=== PATIENT | female | born 1970 | race Caucasian/White ===

== ENCOUNTER 2018-01-30 19:32 | Emergency (ER) | payer OTHER ==
[2018-01-30] MEDS ORDERED: HYDROmorphone 0.5 MG/0.5 ML SYRINGE IM ONE (21:28)
--- NOTE | 2018-01-30 22:49 | EDM.PDOC ---
ED HPI GENERAL MEDICAL PROBLEM - General Chief Complaint: Lower Extremity Injury/Pain Stated Complaint: RIGHT SIDE HIP PAIN Time Seen by Provider: 01/30/18 20:59 Source of Information: Reports: Patient History Limitations: Reports: No Limitations - History of Present Illness INITIAL COMMENTS - FREE TEXT/NARRATIVE: Patient is a 47-year-old female who presents to the ED complaining of right hip pain. Patient had a total right hip replacement 7 years ago. States today while at work she stepped back and with turning her leg out she experienced sudden pain to the right hip that radiated into her right groin. Since then she's been unable to weight-bear secondary to pain. Pain significantly improves with leg bent over the side of the bed. There was no popping sound when this occurred. She denies any motor/sensory deficits distally. Denies recent fall. Pain is localized with no radiation down her leg. 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 [No Known Home Meds] 01/30/18 [History] Past Medical History - Past Surgical History Musculoskeletal Surgical History: Reports: Hip Replacement Social & Family History - Tobacco Use Smoking Status *Q: Never Smoker - Caffeine Use Caffeine Use: Reports: Coffee, Tea - Recreational Drug Use Recreational Drug Use: No Review of Systems - Review of Systems Review Of Systems: ROS reveals no pertinent complaints other than HPI. ED EXAM, GENERAL - Physical Exam Exam: See Below Exam Limited By: No Limitations General Appearance: Alert, WD/WN, Mild Distress Ears: Hearing Grossly Normal Nose: Normal Inspection Throat/Mouth: Normal Voice, No Airway Compromise Neck: Normal Inspection, Supple Respiratory/Chest: No Respiratory Distress, Lungs Clear, Normal Breath Sounds, No Accessory Muscle Use Cardiovascular: Normal Peripheral Pulses, Regular Rate, Rhythm Peripheral Pulses: 4+: Posterior Tibial (R) Back Exam: Normal Inspection Extremities: Normal Inspection, No Pedal Edema, Normal Capillary Refill, Limited Range of Motion, Other (Large surgical incision over the right hip from previous total hip replacement. Pain with palpation along the right hip. Localized with no radiation. Patient is able to flex and extend at the hip with minimal discomfort. She is able to weight-bear but notes increasing pain with doing so. No pain noted with palpation of the femur, knee, lower leg, ankle, or foot. No pain with palpation posteriorly along the hamstring and also anteriorly along the quadriceps. 3 changes noted.) Neurological: Alert, Oriented, CN II-XII Intact, Normal Cognition, No Motor/ Sensory Deficits. No: Normal Gait Psychiatric: Normal Affect, Normal Mood Skin Exam: Warm, Dry, Intact, Normal Color, No Rash Course - Vital Signs Last Recorded V/S: Last Vital Signs Temp 98.7 F 01/30/18 19:54 Pulse 80 01/30/18 19:54 Resp 20 01/30/18 19:54 BP 121/71 01/30/18 19:54 Pulse Ox 98 01/30/18 19:54 - Orders/Labs/Meds Orders: Active Orders 24 hr Category Date Time Status Hip Min 2V or 3V Rt [CR] Stat Exams 01/30/18 21:28 Taken Meds: Medications Discontinued Medications Generic Name Dose Route Start Last Admin Trade Name Vicki PRN Reason Stop Dose Admin Hydromorphone HCl 0.5 mg 01/30/18 21:28 01/30/18 21:44 Dilaudid IM 01/30/18 21:29 0.5 mg ONETIME ONE Administration - Re-Assessments/Exams Free Text/Narrative Re-Assessment/Exam: X-ray of the right hip obtained. Reviewed with Dr. Mcqueen with no acute bony abnormalities noted. Patient is unable to weight bear. She refuses crutches. Will a walker home with the patient. She will followup with Orthopedic Surgeon this week or the following for reevaluation. I have discharged the patient home with prescription for norco. Return precautions discussed with the patient. Discharge instructions as documented. Departure - Departure Time of Disposition: 22:54 Disposition: Home, Self-Care 01 Condition: Good Clinical Impression: Acute right hip pain - Discharge Information Instructions: Hip Pain, Pain Medicine Instructions, [id number] Referrals: Dawson Westbrook MD [Physician] - Forms: ED Department Discharge, ED Return to Work/School Form Additional Instructions: As discussed x-ray of the right hip did not reveal any acute bony abnormalities. Will have you utilize walker to ambulate secondary to increasing pain with weightbearing. Apply ice to affected area 3 times a day, 30 minutes in duration, do not apply directly on the skin. Utilize Tylenol and ibuprofen in alternating fashion for pain. For severe pain take [place] one tab every 6 hours as needed[address] Do not drive this evening since receiving a sedative medication while in the ED. Do not drive while taking the [place]. Do not take [place] and Tylenol together. Call and make an appointment to be evaluated by Dr. Westbrook this week or the following. Refrain from any activities that cause worsening pain. Return to the ED if you develop any new or worsening symptoms. - My Orders Last 24 Hours: My Active Orders 01/30/18 21:28 Hip Min 2V or 3V Rt [CR] Stat - Assessment/Plan Last 24 Hours: My Active Orders 01/30/18 21:28 Hip Min 2V or 3V Rt [CR] Stat
--- NOTE | 2018-01-31 07:43 | CR ---
Right hip: AP and frog-leg lateral views of the right hip were obtained. Comparison: No previous study. Right hip prosthesis is seen. Components are aligned. Underlying bony structures are intact. Impression: 1. Right hip prosthesis. Nothing acute is seen. Diagnostic code #2
== END 2018-01-30 23:10 | disposition home or self-care (01) ==
LOC: JD.ED 19:32
DX: M25.551 Pain in right hip (principal); Z88.0 Allergy status to penicillin; Z96.641 Presence of right artificial hip joint
CPT/HCPCS: 73502; 96372; 99283; J1170

== ENCOUNTER 2019-07-07 01:51 | Emergency (ER) | payer BC ==
[2019-07-07] MEDS ORDERED: Sodium Chloride 0.9% 1,000 ML IV STA (02:17)
[2019-07-07] MEDS ORDERED: Ondansetron 4 MG/2 ML SDV IVPUSH ONE (02:17)
[2019-07-07] MEDS ORDERED: Sodium Chloride 0.9% 10 ML Syringe FLUSH PRN (02:17)
[2019-07-07] MEDS ORDERED: Famotidine 20 MG/2 ML SDV IVPUSH ONE (02:18)
[2019-07-07] MEDS ORDERED: HYDROmorphone 1 MG/ML Syringe IVPUSH ONE (02:18)
--- NOTE | 2019-07-07 02:26 | EDM.PDOC ---
ED HPI GENERAL MEDICAL PROBLEM - General Chief Complaint: Abdominal Pain Stated Complaint: ABDOMINAL PAIN Time Seen by Provider: 07/07/19 02:13 Source of Information: Reports: Patient, Family History Limitations: Reports: No Limitations - History of Present Illness INITIAL COMMENTS - FREE TEXT/NARRATIVE: The patient presents with left upper abdominal pain. This woke her out of her sleep tonight. The pain goes to her mid abdomen. She says she had pain on and off for about 4 days. She has nausea and she had some diarrhea. Some people at work had a GI bug. She has had trouble with her gallbladder before. She had an US and HIDA scan in November. Her US shows sludge in the gallbladder. Her HIDA scan showed a normal ejection fraction. She has no fever or chills. She has no chest pain or shortness of breath. She has no dysuria. She still has her gallbladder and appendix. Onset: Gradual Duration: Day(s): Location: Reports: Abdomen Quality: Reports: Sharp Severity: Moderate Improves with: Reports: None Worsens with: Reports: None Associated Symptoms: Reports: Nausea/Vomiting. Denies: Chest Pain, Cough, Fever /Chills, Headaches, Shortness of Breath Right Abdominal Pain Score (Numeric/FACES): 5 - Related Data Allergies Allergy/AdvReac Type Severity Reaction Status Date / Time Penicillins Allergy Other Verified 07/07/19 02:02 Home Meds: Home Meds Estrogens, Conjugated [Premarin] 07/07/19 [History] Hydrocodone/Acetaminophen [Hydrocodon-Acetaminophen 5-325] 1 - 2 each PO Q6HR PRN #20 tablet 07/07/19 [Rx] Ondansetron [Zofran ODT] 4 mg PO Q6H PRN #20 tab.dis 07/07/19 [Rx] Progesterone, Micronized [Progesterone] 07/07/19 [History] Past Medical History HEENT History: Reports: Impaired Vision - Past Surgical History Musculoskeletal Surgical History: Reports: Hip Replacement Social & Family History - Family History Family Medical History: Noncontributory - Tobacco Use Smoking Status *Q: Never Smoker - Caffeine Use Caffeine Use: Reports: Coffee, Soda - Recreational Drug Use Recreational Drug Use: No ED ROS GENERAL - Review of Systems Review Of Systems: See Below Constitutional: Reports: No Symptoms HEENT: Reports: No Symptoms Respiratory: Reports: No Symptoms Cardiovascular: Reports: No Symptoms Endocrine: Reports: No Symptoms GI/Abdominal: Reports: Abdominal Pain, Diarrhea, Nausea. Denies: Vomiting : Reports: No Symptoms ED EXAM, GI/ABD - Physical Exam Exam: See Below Exam Limited By: No Limitations General Appearance: Alert, No Apparent Distress Ears: Normal External Exam Nose: Normal Inspection Head: Atraumatic, Normocephalic Neck: Normal Inspection Respiratory/Chest: No Respiratory Distress, Lungs Clear, Normal Breath Sounds Cardiovascular: Regular Rate, Rhythm, No Edema, No Murmur GI/Abdominal Exam: Soft, No Organomegaly, No Mass, Tender (Moderate tenderness to the upper abdomen) Back Exam: Normal Inspection Extremities: Normal Inspection Course - Vital Signs Last Recorded V/S: Last Vital Signs Temp 98.3 F 07/07/19 01:59 Pulse 88 07/07/19 01:59 Resp 19 07/07/19 01:59 BP 107/75 07/07/19 01:59 Pulse Ox 99 07/07/19 01:59 - Orders/Labs/Meds Orders: Active Orders 24 hr Category Date Time Status Peripheral IV Care [RC] . DIRECTED Care 07/07/19 02:17 Active Abdomen Pelvis w Cont [CT] Stat Exams 07/07/19 02:17 Taken Sodium Chloride 0.9% [Saline Flush] Med 07/07/19 02:17 Active 10 ml FLUSH ASDIRECTED PRN ED Antiemetic Medication Reflex [OM.PC] Stat Oth 07/07/19 02:17 Ordered Peripheral IV Insertion Adult [OM.PC] Stat Oth 07/07/19 02:17 Ordered Medication Orders Sodium Chloride (Saline Flush) 10 ml FLUSH ASDIRECTED PRN PRN Reason: Keep Vein Open Last Admin: 07/07/19 02:39 Dose: 10 ml Labs: Laboratory Tests 07/07/19 07/07/19 07/07/19 Range/Units 02:25 02:25 03:41 WBC 11.07 H (3.98-10.04) K/mm3 RBC 4.48 (3.98-5.22) M/mm3 Hgb 13.9 (11.2-15.7) gm/dl Hct 40.0 (34.1-44.9) % MCV 89.3 (79.4-94.8) fl MCH 31.0 (25.6-32.2) pg MCHC 34.8 (32.2-35.5) g/dl RDW Std Deviation 42.2 (36.4-46.3) fL Plt Count 267 (182-369) K/mm3 MPV 10.2 (9.4-12.3) fl Neut % (Auto) 64.3 (34.0-71.1) % Lymph % (Auto) 25.0 (19.3-51.7) % [place] % (Auto) 6.7 (4.7-12.5) % Eos % (Auto) 3.3 (0.7-5.8) Baso % (Auto) 0.3 (0.1-1.2) % Neut # (Auto) 7.13 H (1.56-6.13) K/mm3 Lymph # (Auto) 2.77 (1.18-3.74) K/mm3 [place] # (Auto) 0.74 H (0.24-0.36) K/mm3 Eos # (Auto) 0.36 (0.04-0.36) K/mm3 Baso # (Auto) 0.03 (0.01-0.08) K/mm3 Manual Slide Review Abnormal smear Sodium 137 (136-145) mEq/L Potassium 3.6 (3.5-5.1) mEq/L Chloride 105 (98-107) mEq/L Carbon Dioxide 23 (21-32) mEq/L Anion Gap 12.6 (5-15) BUN 14 (7-18) mg/dL Creatinine 0.9 (0.55-1.02) mg/dL Est Cr Clr Drug Dosing 71.91 mL/min Estimated GFR (MDRD) > 60 (>60) mL/min BUN/Creatinine Ratio 15.6 (14-18) Glucose 99 (74-106) mg/dL Calcium 8.8 (8.5-10.1) mg/dL Total Bilirubin 0.5 (0.2-1.0) mg/dL AST 144 H (15-37) U/L ALT 118 H (14-59) U/L Alkaline Phosphatase 60 (46-116) U/L Total Protein 7.0 (6.4-8.2) g/dl Albumin 3.7 (3.4-5.0) g/dl Globulin 3.3 gm/dL Albumin/Globulin Ratio 1.1 (1-2) Lipase 120 (73-393) U/L Urine Color Yellow (Yellow) Urine Appearance Clear (Clear) Urine pH 6.5 (5.0-8.0) Ur Specific [place] 1.020 (1.005-1.030) Urine Protein Negative (Negative) Urine Glucose (UA) Negative (Negative) Urine Ketones Negative (Negative) Urine Occult Blood Negative (Negative) Urine Nitrite Negative (Negative) Urine Bilirubin Negative (Negative) Urine Urobilinogen 0.2 (0.2-1.0) Ur Leukocyte Esterase Negative (Negative) Urine RBC 0-5 (0-5) /hpf Urine WBC 0-5 (0-5) /hpf Ur Squamous Epith Cells 5-10 H (0-5) /hpf Urine Bacteria Few (FEW) /hpf Urine Mucus Rare (FEW) /hpf Meds: Medications Generic Name Dose Route Start Last Admin Trade Name Freq PRN Reason Stop Dose Admin Sodium Chloride 10 ml 07/07/19 02:17 07/07/19 02:39 Saline Flush FLUSH 10 ml ASDIRECTED PRN Administration Keep Vein Open Discontinued Medications Generic Name Dose Route Start Last Admin Trade Name Freq PRN Reason Stop Dose Admin Diatrizoate Meglum/Diatrizoate Sod 90 ml 07/07/19 03:22 Gastrografin 37% PO 07/07/19 03:23 ONETIME ONE Famotidine 20 mg 07/07/19 02:18 07/07/19 02:35 Pepcid IVPUSH 07/07/19 02:19 20 mg ONETIME ONE Administration Hydromorphone HCl 1 mg 07/07/19 02:18 07/07/19 02:35 Dilaudid IVPUSH 07/07/19 02:19 1 mg ONETIME ONE Administration Sodium Chloride 1,000 mls @ 1,000 mls/hr 07/07/19 02:17 07/07/19 02:40 Normal Saline IV 07/07/19 03:16 1,000 mls/hr .BOLUS STA Administration Iopamidol 100 ml 07/07/19 03:22 Isovue-300 (61%) IVPUSH 07/07/19 03:23 ONETIME ONE Ondansetron HCl 4 mg 07/07/19 02:17 12/06/19 02:36 Zofran IVPUSH 07/07/19 02:18 4 mg ONETIME ONE Administration - Re-Assessments/Exams Free Text/Narrative Re-Assessment/Exam: 07/07/19 02:25 I ordered an IV NS 1L bolus, zofran 4mg IV, dilaudid 1mg IV, pepcid 20mg IV, labs, UA and a CT of her abdomen and pelvis. 07/07/19 04:49 Her WBC was slightly elevated at 11.07. Her AST was elevated at 144. Her ALT is elevated at 118. Her lipase is negative. Her UA shows no UTI. Her CT shows cholelithiasis with gallbladder distention and possible sludge versus stones in the basilar Doppler. Gallbladder US is suggested. Sigmoid diverticulosis but no diverticulitis. She feels much better. I will refer her to Dr Childers our surgeon to possibly have her gallbladder removed. 07/07/19 04:53 Departure - Departure Time of Disposition: 04:55 Disposition: Home, Self-Care 01 Condition: Good Clinical Impression: Biliary colic Abdominal pain Qualifiers: Abdominal location: upper abdomen, unspecified Qualified Code(s): R10.10 - Upper abdominal pain, unspecified Cholelithiasis Qualifiers: Cholelithiasis location: gallbladder Cholecystitis presence: without cholecystitis Biliary obstruction: without biliary obstruction Qualified Code(s) : K80.20 - Calculus of gallbladder without cholecystitis without obstruction - Discharge Information *PRESCRIPTION DRUG MONITORING PROGRAM REVIEWED*: No *COPY OF PRESCRIPTION DRUG MONITORING REPORT IN PATIENT HECTOR: No Prescriptions: Hydrocodone/Acetaminophen [Hydrocodon-Acetaminophen 5-325] 1 - 2 each PO Q6HR PRN #20 tablet PRN Reason: Pain Ondansetron [Zofran ODT] 4 mg PO Q6H PRN #20 tab.dis PRN Reason: Nausea\vomiting Referrals: Tami Villar MD [Primary Care Provider] - Matthew Childers MD [Physician] - Forms: ED Department Discharge, ED Return to Work/School Form Additional Instructions: Drink plenty of fluids. Try to avoid any fried or fatty foods. Take the hydrocodone as needed for pain and the zofran as needed for nausea and vomiting. Follow up with Dr Childers our general surgeon. Please return if you are worse. - My Orders Last 24 Hours: My Active Orders 07/07/19 02:17 Peripheral IV Care [RC] . DIRECTED Abdomen Pelvis w Cont [CT] Stat Sodium Chloride 0.9% [Saline Flush] 10 ml FLUSH ASDIRECTED PRN ED Antiemetic Medication Reflex [OM.PC] Stat Peripheral IV Insertion Adult [OM.PC] Stat - Assessment/Plan Last 24 Hours: My Active Orders 07/07/19 02:17 Peripheral IV Care [RC] . DIRECTED Abdomen Pelvis w Cont [CT] Stat Sodium Chloride 0.9% [Saline Flush] 10 ml FLUSH ASDIRECTED PRN ED Antiemetic Medication Reflex [OM.PC] Stat Peripheral IV Insertion Adult [OM.PC] Stat
[2019-07-07] MEDS ORDERED: Diatrizoate Meglumine/Diatrizoate Sodium 37% 120 ML Bottle PO ONE (03:22)
[2019-07-07] MEDS ORDERED: Iopamidol 612 MG/ML 100 ML Bottle IVPUSH ONE (03:22)
--- NOTE | 2019-07-10 06:36 | CT ---
CT abdomen and pelvis Technique: Multiple axial sections were obtained from above the dome of the diaphragm inferiorly through the pubic symphysis. Intravenous and oral contrast was given. Delayed images were also obtained through the bladder. Comparison: No prior CT exam. Previous right upper quadrant abdominal ultrasound 12/22/18. Findings: Visualized lung bases show nothing acute. Liver shows several high density findings within the right lobe most likely due to slight calcifications which are most likely incidental. Minimal intrahepatic biliary duct dilatation is seen. Gallbladder shows layering soft tissue density either due to sludge and/or gallstones. No gallstones were seen on prior ultrasound. Spleen appears within normal limits. Pancreas shows no discrete abnormality. Adrenal glands show no nodule. Kidneys show symmetric contrast enhancement without hydronephrosis or mass. Aorta shows no aneurysm. No retroperitoneal adenopathy or mesenteric abnormalities are seen. No pelvic mass or adenopathy is identified. Mild diverticulosis is seen within the sigmoid colon and descending colon without inflammatory change of diverticulitis. No free fluid is seen. Artifact is noted from right hip prosthesis. Delayed images show contrast within the distal ureters and within the bladder. Appendix is visualized and is normal in size. Bone window settings were reviewed which shows disc space narrowing at L5-S1 with vacuum phenomena. Minimal vacuum disc phenomena is seen within the L4-L5 disc with minimal disc space narrowing. No acute osseous finding is appreciated. Impression: 1. Mild intrahepatic biliary duct dilatation. Gallbladder shows layering material either due to sludge and/or gallstones. Gallbladder ultrasound could be obtained to further evaluate. No gallstones are seen on ultrasound of 12/22/18. 2. Sigmoid diverticulosis without diverticulitis. 3. Other findings which are felt to be nonacute and incidental. Diagnostic code #3 This report was dictated in [place] Standard Time I agree with preliminary report from [facility], finalized on 07/07/19, 5:24 AM Central Time
== END 2019-07-07 05:11 | disposition home or self-care (01) ==
LOC: JD.ED 01:51
DX: K80.70 Calculus of gallbladder and bile duct without cholecystitis without obstruction (principal); Z88.0 Allergy status to penicillin
CPT/HCPCS: 36415; 74177; 80053; 81001; 83690; 85025; 96361; 96374; 96375; 99284; J1170; J2405; J3490; J7030; Q9963

== ENCOUNTER 2019-09-14 07:49 | Day surgery (SDC) | payer BC ==
[~2019-09-14 07:49] MED LIST: Clindamycin Phosphate 900 MG in Sodium Chloride 0.9% 100 ML IV SCH; Clindamycin Phosphate in D5W 900 MG in Premix Bag 1 BAG IV ONE; Lactated Ringers 1,000 ML IV SCH; Lidocaine 1% 6 ML ONE; Lidocaine 1%/Sod Bicarbonate in NS 8.4% 1 ML Syringe IDERM PRN; Midazolam 1 MG/ML 2 ML SDV ONE; Ondansetron 4 MG/2 ML SDV ONE; Propofol 200 MG/20 ML SDV ONE; Rocuronium 50 MG/5 ML Vial ONE; Sodium Chloride 0.9% 10 ML Syringe FLUSH PRN; fentaNYL 250 MCG/5 ML SDV ONE
[2019-09-14] MEDS ORDERED: Bupivacaine 0.5%/EPINEPHrine 1:200,000 50 ML MDV ONE (08:18)
--- NOTE | 2019-09-14 08:35 | PCM.PREANE ---
Preanesthetic Assessment - Anesthesia/Transfusion/Family Hx Anesthesia History: Prior Anesthesia Without Reaction Family History of Anesthesia Reaction: No - Review of Systems General: No Symptoms Pulmonary: No Symptoms Cardiovascular: No Symptoms, Other (While her heart would "race" evaluated and determined medication was not needed. ) Gastrointestinal: No Symptoms, Other (Elevated liver enzymes with gallbladder attack) Neurological: Pre-Existing Deficit (Chronic Back Pain) Other: Reports: None (Rhinitis) - Physical Assessment NPO Status Date: 09/13/19 NPO Status Time: 20:00 Vital Signs: Last Vital Signs Temp 36.9 C 09/14/19 08:05 Pulse 86 09/14/19 08:05 Resp 16 09/14/19 08:05 BP 111/92 H 09/14/19 08:05 Pulse Ox 97 09/14/19 08:05 Height: 1.7 m Weight: 78.925 kg ASA Class: 2 Mental Status: Alert & Oriented x3 Airway Class: Mallampati = 1 Dentition: Reports: Normal Dentition Thyro-Mental Finger Breadths: 2 Mouth Opening Finger Breadths: 3 ROM/Head Extension: Full Lungs: Clear to Auscultation, Normal Respiratory Effort Cardiovascular: Regular Rate, Regular Rhythm - Lab Values: Laboratory Last Values Urine HCG, Qual Negative (NEGATIVE) 09/14/19 08:00 - Allergies Allergies/Adverse Reactions: Allergies Allergy/AdvReac Type Severity Reaction Status Date / Time Penicillins Allergy Other Verified 09/13/19 16:04 - Acknowledgements Anesthesia Type Planned: General Anesthesia Pt an Appropriate Candidate for the Planned Anesthesia: Yes Alternatives and Risks of Anesthesia Discussed w Pt/Guardian: Yes Pt/Guardian Understands and Agrees with Anesthesia Plan: Yes PreAnesthesia Questionnaire HEENT History: Reports: Allergic Rhinitis, Impaired Vision Cardiovascular History: Reports: Other (See Below) Other Cardiovascular History: tachycardia Respiratory History: Reports: Other (See Below) Other Respiratory History: cough, URI Gastrointestinal History: Reports: Other (See Below) Other Gastrointestinal History: acute cholecystitis, elevated LFTs, gallbladder sludge, nausea, abdomnial pain Genitourinary History: Reports: STD 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 SERVICE 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: 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: Other (See Below) Other OB/BYN History: decreased libido, perimenopausal menorrhagia, vaginal discharge Musculoskeletal History: Reports: Arthritis, Back Pain, Chronic Neurological History: Reports: Other (See Below) Other Neuro History: degenerative joint disease of lumbar spine Psychiatric History: Reports: Other (See Below) Other Psychiatric History: fatigue, insomnia Endocrine/Metabolic History: Reports: Vitamin D Deficiency Hematologic History: Reports: None Immunologic History: Reports: None Oncologic (Cancer) History: Reports: None Dermatologic History: Reports: None - Past Surgical History Head Surgeries/Procedures: Reports: None HEENT Surgical History: Reports: None Cardiovascular Surgical History: Reports: None Respiratory Surgical History: Reports: None GI Surgical History: Reports: None Female Surgical History: Reports: None Endocrine Surgical History: Reports: None Neurological Surgical History: Reports: None Musculoskeletal Surgical History: Reports: Hip Replacement Oncologic Surgical History: Reports: None - SUBSTANCE USE Smoking Status *Q: Never Smoker Recreational Drug Use History: No - HOME MEDS Home Medications: Home Meds Hydrocodone/Acetaminophen [Hydrocodon-Acetaminophen 5-325] 1 - 2 each PO Q6HR PRN #20 tablet 07/07/19 [Rx] Ondansetron [Zofran ODT] 4 mg PO Q8H PRN 09/13/19 [History] Progesterone, Micronized [Progesterone] 200 mg PO DAILY 09/13/19 [History] estradioL [Estradiol] 0.5 mg PO DAILY 09/13/19 [History] estradioL [Estradiol] 1 mg PO DAILY 09/13/19 [History] traZODone HCl [Trazodone HCl] 100 mg PO BEDTIME 09/13/19 [History] - CURRENT (IN HOUSE) MEDS Current Meds: Current Medications Lactated Ringer's (Ringers, Lactated) 1,000 mls @ 125 mls/hr IV ASDIRECTED JAQUI Stop: 09/14/19 23:00 Last Admin: 09/14/19 08:25 Dose: 125 mls/hr Lidocaine/Sodium Bicarbonate (Buffered Lidocaine 1% In Ns 8.4%) 0.25 ml IDERM ONETIME PRN PRN Reason: Prior to IV Start Stop: 09/14/19 18:00 Sodium Chloride (Saline Flush) 10 ml FLUSH ASDIRECTED PRN PRN Reason: Keep Vein Open Stop: 09/14/19 18:00 Discontinued Medications Bupivacaine HCl/Epinephrine Bitart (Marcaine 0.5%/Epinephrine 1:200,000) Confirm Administered Dose 50 ml .ROUTE .STK-MED ONE Stop: 09/14/19 08:19 Fentanyl (Sublimaze) Confirm Administered Dose 250 mcg .ROUTE .STK-MED ONE Stop: 09/14/19 06:53 Clindamycin Phosphate 900 mg/ (Premix) 50 mls @ 100 mls/hr IV ONETIME ONE Stop: 09/14/19 06:44 Lidocaine HCl (Xylocaine-Mpf 1%) Confirm Administered Dose 6 mls @ as directed .ROUTE .STK-MED ONE Stop: 09/14/19 06:53 Midazolam HCl (Versed 1 Mg/Ml) Confirm Administered Dose 4 mg .ROUTE .STK-MED ONE Stop: 09/14/19 06:53 Ondansetron HCl (Zofran) Confirm Administered Dose 8 mg .ROUTE .STK-MED ONE Stop: 09/14/19 06:54 Propofol (Diprivan 20 Ml) Confirm Administered Dose 200 mg .ROUTE .STK-MED ONE Stop: 09/14/19 06:53 Rocuronium Jerome (Zemuron) Confirm Administered Dose 50 mg .ROUTE .STK-MED ONE Stop: 09/14/19 06:52
[2019-09-14] MEDS ORDERED: Succinylcholine/Normal Saline 100 MG/5 ML Syringe ONE (09:16)
[2019-09-14] MEDS ORDERED: Dexamethasone 4 MG/ML 5 ML MDV ONE (09:39)
[2019-09-14] MEDS ORDERED: HYDROmorphone 0.5 MG/0.5 ML Syringe ONE (09:47)
[2019-09-14] MEDS ORDERED: Lactated Ringers 1,000 ML ONE (09:59)
[2019-09-14] MEDS ORDERED: Neostigmine Methylsulfate 1 MG/ML 5 ML Syringe ONE (10:02)
[2019-09-14] MEDS ORDERED: fentaNYL 100 MCG/2 ML SDV IVPUSH PRN (10:05)
[2019-09-14] MEDS ORDERED: HYDROmorphone 0.5 MG/0.5 ML Syringe IVPUSH PRN (10:05)
--- NOTE | 2019-09-14 10:10 | PCM.PRNOTE ---
- Free Text/Narrative Note: Operative Report Operation: laparoscopic cholecystectomy Date: 09/14/2019 Attending Surgeon: Matthew Chliders MD Indication for Surgery: symptomatic cholelithiasis Preoperative antibiotics: 2 g Ancef IV VTE prophylaxis: SCDs Estimated Blood Loss: minimal Findings: grossly normal appearance of gallbladder. Normal anatomy, critical view of safety obtained. Detailed Report: The patient underwent general endotracheal anesthesia after being placed supine on the operating table and initial timeout. The abdomen was prepped and draped in sterile fashion. A pre-incision timeout was performed confirming the patient s identity and the operation to be performed. A Veress needle was inserted into the abdominal cavity below the left costal margin along the mid-clavicular line. The abdomen was insufflated with CO2 to 15 mm Hg. Gas was aspirated below the umbilicus with a syringe in order to ensure safe placement of a 5 mm bladed laparoscopic port. The 5mm 30 degree laparoscope was then inserted and viscera inspected. The gallbladder appeared grossly normal. Two additional 5 mm ports were placed along the right subcostal region under direct vision with the laparoscope, and a 12 mm port was placed at the subxiphoid region. The gallbladder was grasped at the fundus with a locking grasper and retracted anteriorly and superiorly, exposing the infundibulum. This was grasped with the surgeons left hand grasper and retracted laterally. The hook electrode was used to open the overlying peritoneum, and this plane of dissection was developed along the edges of the gallbladder at its interface with the liver bed. A combination of hook electrode and the [place] grasper were used to carefully expose and skeletonize the cystic duct and artery. A critical view of safety was obtained. The hemolock clip delivery coordinator was malfunctioning, and so metal clips were then placed on both structures. The duct and artery were transected with laparoscopic scissors between the hemolock clips. The hook was then used to dissect the gallbladder free from its attachment to the liver. The specimen was then placed in an Endocatch bag and removed through the subxiphoid port. The liver bed was inspected and appeared hemostatic. The larger subxiphoid port was closed at the level of the fascia with vicryl suture using the PMI laparoscopic suture passer. Pneumoperitoneum was then released. All skin incisions were then closed with placement of subcuticular vicryl suture and dressed with dermabond. A total of 22 cc 0.5% marcaine with epinephrine was used for local anesthesia at the incision sites. The patient tolerated the operation well, was extubated in the operating room and transferred to the PACU for routine post-anesthesia care. Matthew Childers MD General Surgery
--- NOTE | 2019-09-14 10:36 | PCM.POSTAN ---
POST ANESTHESIA ASSESSMENT - MENTAL STATUS Mental Status: Alert, Oriented - VITAL SIGNS Vital Signs: Last Vital Signs Temp 98.3 F 09/14/19 10:30 Pulse 78 09/14/19 10:30 Resp 13 09/14/19 10:30 BP 113/69 09/14/19 10:30 Pulse Ox 96 09/14/19 10:30 - RESPIRATORY Respiratory Status: Respiratory Rate WNL, Airway Patent, O2 Saturation Stable, Supplemental Oxygen - CARDIOVASCULAR CV Status: Pulse Rate WNL, Blood Pressure Stable - GASTROINTESTINAL GI Status: No Symptoms - PAIN Pain Score: 4 - POST OP HYDRATION Hydration Status: Adequate & Stable
[2019-09-14] MEDS ORDERED: oxyCODONE 5 MG Tab PO SCH (10:56)
--- NOTE | 2019-09-14 11:40 | PCM48HPAN ---
Post Anesthesia Note - EVALUATION WITHIN 48HRS OF ANESTHETIC Vital Signs in Normal Range: Yes Patient Participated in Evaluation: Yes Respiratory Function Stable: Yes Airway Patent: Yes Cardiovascular Function Stable: Yes Hydration Status Stable: Yes Pain Control Satisfactory: Yes Nausea and Vomiting Control Satisfactory: Yes Mental Status Recovered: Yes Vital Signs: Last Vital Signs Temp 36.3 C 09/14/19 11:00 Pulse 65 09/14/19 11:22 Resp 16 09/14/19 11:22 BP 112/78 09/14/19 11:22 Pulse Ox 99 09/14/19 11:22
== END 2019-09-14 11:58 | disposition home or self-care (01) ==
LOC: JD.SDS 07:49
PROVIDERS: ATTEND Surgery
DX: K80.20 Calculus of gallbladder without cholecystitis without obstruction (principal); K82.8 Other specified diseases of gallbladder; M47.816 Spondylosis without myelopathy or radiculopathy, lumbar region; G47.00 Insomnia, unspecified; Z88.0 Allergy status to penicillin; Z79.899 Other long term (current) drug therapy
CPT/HCPCS: 47562; 81025; A9270; J0330; J1100; J1170; J2001; J2250; J2405; J2704; J2710; J3010; J3490; J7120; 00790

== ENCOUNTER 2021-11-06 10:02 | Emergency (ER) | payer BC ==
[2021-11-06] MEDS ORDERED: Famotidine 20 MG Tab PO ONE (10:46)
[2021-11-06] MEDS ORDERED: Alum Hydrox/Mag Hydrox/Simeth 30 ML, Lidocaine 2% 15 ML PO ONE ×2 (10:46)
[2021-11-06] MEDS ORDERED: Sodium Chloride 0.9% 10 ML Syringe FLUSH PRN ×2 (12:18→12:49)
[2021-11-06] MEDS ORDERED: Iopamidol 612 MG/ML 100 ML Bottle IVPUSH ONE ×2 (12:18→12:49)
[2021-11-06] MEDS ORDERED: Sodium Chloride 0.9% 100 ML IV SCH ×2 (12:30→13:00)
== END 2021-11-06 16:45 | disposition home or self-care (01) ==
LOC: JD.ED 10:02
DX: K83.9 Disease of biliary tract, unspecified (principal); R79.89 Other specified abnormal findings of blood chemistry; Z88.0 Allergy status to penicillin
CPT/HCPCS: 36415; 74177; 74177-26; 74181; 74181-26; 80053; 83690; 85025; 86803; 87340; 93005; 93010; 99284-25; 99285; A9270-GY; J3490; Q9967